=== PATIENT | male | born 1985 | race African-American/Black ===

== ENCOUNTER 2020-02-23 07:16 | Emergency (ER) | payer SELFPAY ==
[2020-02-23 07:43] VITALS: BP 78/30
[2020-02-23 09:11] LABS: GLUCOSE,POINT OF CARE 186 MG/DL (70-110)
[2020-02-23 10:16] LABS: BASOPHILS % (AUTO) 0.8 % (0.0-2.0); EOSINOPHILS % (AUTO) 0.2 % (1.0-6.0); HEMATOCRIT 35.2 % (41-53); HEMOGLOBIN 11.4 g/dL (13.5-17.5); LYMPHOCYTES # (AUTO) 9.1 K/uL (1.0-4.8); LYMPHOCYTES % (AUTO) 59.9 % (22.0-44.0); MEAN CORPUSCULAR HEMOGLOBIN 33.1 pg (26.0-34.0); MEAN CORPUSCULAR HGB CONC 32.3 G/dL (31.0-37.0); MEAN CORPUSCULAR VOLUME 103 fL (80-100); MONOCYTES # (AUTO) 0.8 K/uL (0.1-1.0); MONOCYTES % (AUTO) 5.1 % (2.0-9.0); NEUTROPHILS # (AUTO) 5.2 K/uL (1.8-7.7); PLATELET COUNT (AUTO) 167 K/uL (150-450); RED BLOOD CELL COUNT(AUTO) 3.43 MIL/uL (4.50-5.90); RED CELL DISTRIBUTION WIDTH 13.2 % (11.5-14.5)
[2020-02-23 10:40] LABS: D-DIMER 34.31 mg/L FEU (0.00-0.50); INR 1.3 (0.9-1.1)
[2020-02-23] MEDS ORDERED: DOPamine HCL/D5W 400 MG/250 ML IV BAG IV ONE (16:29)
[2020-02-23] MEDS ORDERED: 0.9% SODIUM CHLORIDE 10 ML SYRINGE IVP ONE (16:29)
[2020-02-23] MEDS ORDERED: SODIUM BICARBONATE [ADULT] 8.4% 50 MEQ/50 ML SYRINGE IVP ONE (16:29)
[2020-02-23] MEDS ORDERED: EPINEPHrine 1:10,000 [1 MG/10 ML] SYRINGE ONE (16:29)
[2020-02-23] MEDS ORDERED: AMIODARONE HCL 50 MG/ML 3 ML VIAL ONE (16:29)
== END 2020-02-23 12:34 | disposition expired ==
LOC: EMS 07:18
DX: I46.9 Cardiac arrest, cause unspecified (principal); R56.9 Unspecified convulsions; F14.10 Cocaine abuse, uncomplicated; F12.10 Cannabis abuse, uncomplicated; R79.1 Abnormal coagulation profile
CPT/HCPCS: 36415; 82962; 83880; 85025; 85379; 85610; 85730; 92950; 93005; 99285; J0171; J0282; J1265; J3490; X7700; 94002